=== PATIENT | male | born 1930 | race Caucasian/White ===

== ENCOUNTER → 2017-03-25 | Outpatient (CLI) | payer MEDICARE, OTHER ==
[~2017-03-25] MED LIST: ASPIRIN81 MG PO; COREG12.5 MG PO; DITROPAN XL10 MG PO; GLUCOPHAGE1000 MG PO; LOTENSIN20 MG PO; LOTENSIN40 MG PO; SYNTHROID100 MCG PO
== END | disposition short-term general hospital (02) ==
LOC: CLUROL 01-14 09:38
DX: R35.0 Frequency of micturition (principal); R35.1 Nocturia; R32 Unspecified urinary incontinence

== ENCOUNTER 2017-05-13 12:35 | Day surgery (SDC) | payer MEDICARE, OTHER ==
[2017-06-19] MEDS ORDERED: COREG12.5 MG PO (09:37)
[2017-06-19] MEDS ORDERED: LOTENSIN40 MG PO (09:38)
[2017-06-19] MEDS ORDERED: LOTENSIN20 MG PO (09:38)
[2017-06-19] MEDS ORDERED: ASPIRIN81 MG PO (09:39)
[2017-06-19] MEDS ORDERED: SYNTHROID100 MCG PO (09:39)
[2017-06-19] MEDS ORDERED: GLUCOPHAGE1000 MG PO (09:39)
[2017-06-19] MEDS ORDERED: DITROPAN XL10 MG PO (09:40)
== END 2017-05-13 14:05 | disposition short-term general hospital (02) ==
LOC: SURGOP 12:35
PROC: 0TJB8ZZ Inspection of Bladder, Via Natural or Artificial Opening Endoscopic (ICD-10-PCS; principal; 2017-05-13)
DX: N40.1 Benign prostatic hyperplasia with lower urinary tract symptoms (principal); R35.0 Frequency of micturition; R35.1 Nocturia; N39.0 Urinary tract infection, site not specified